=== PATIENT | male | born 1965 | race Caucasian/White ===

== ENCOUNTER 2018-09-18 05:53 | Day surgery (SDC) | payer OTHER ==
[2018-08-01 10:20] VITALS: BMI 39.8
[2018-09-18] MEDS ORDERED: MIDAZOLAM HCL 2 MG/2 ML SINGLE DOSE VIAL ONE (06:53)
[2018-09-18] MEDS ORDERED: PROPOFOL 20 ML ONE ×2 (06:56→07:45)
[2018-09-18] MEDS ORDERED: ROCURONIUM BROMIDE 50 MG/5 ML VIAL ONE (06:56)
[2018-09-18] MEDS ORDERED: SUCCINYLCHOLINE CHLORIDE 200 MG/10 ML VIAL ONE (06:56)
[2018-09-18] MEDS ORDERED: ONDANSETRON 4 MG/2 ML VIAL ONE (06:57)
[2018-09-18] MEDS ORDERED: LIDOCAINE HCL/PF 2% SDV 5ML VIAL ONE (06:57)
[2018-09-18] MEDS ORDERED: DEXAMETHASONE SOD PHOSPHATE 4 MG/1 ML VIAL ONE (06:57)
[2018-09-18] MEDS ORDERED: BUPIVACAINE HCL 0.25% 125 MG/50 ML VIAL ONE (07:23)
[2018-09-18] MEDS ORDERED: SEVOFLURANE 250 ML BTL ONE (07:24)
[2018-09-18] MEDS ORDERED: ONDANSETRON 4 MG/2 ML VIAL IVPUSH PRN (07:29)
[2018-09-18] MEDS ORDERED: oxyCODONE HCL 5 MG TABLET PO PRN ×2 (07:29)
--- NOTE | 2018-09-18 07:29 | OP ---
Operative Note - Note: Operative Date: 09/18/18 Pre-Operative Diagnosis: Right medial meniscus tear Operation: Right knee arthroscopy Post-Operative Diagnosis: Same as Pre-op Surgeon: Shadi Matthews Mannequin Mounter: Laura Mckeon Anesthesia: General Operative Report Dictated: Yes
[2018-09-18] MEDS ORDERED: LACTATED RINGERS SOLUTION 1,000 ML IV SCH (07:30)
[2018-09-18] MEDS ORDERED: ceFAZolin SODIUM 1 GM VIAL ONE (07:49)
[2018-09-18] MEDS ORDERED: BUPIVACAINE HCL/PF 0.25% (2.5MG/ML) 10 ML VIAL IJ ONE (07:56)
[2018-09-18] MEDS ORDERED: ACETAMINOPHEN 1000 MG/100 ML VIAL (NON FORMULARY) IVPB ONE (08:27)
[2018-09-18] MEDS ORDERED: ACETAMINOPHEN INJECTION 100 ML IVPB ONE (08:39)
--- NOTE | 2018-09-18 08:46 | OP ---
DATE OF OPERATION: 09/18/2018 PREOPERATIVE DIAGNOSIS: Right knee medial meniscal tear. POSTOPERATIVE DIAGNOSIS: Right knee medial meniscal tear. PROCEDURE PERFORMED: Right knee arthroscopy with partial medial meniscectomy. SURGEON: Shadi Caal MD ANESTHESIA: General. POSTOPERATIVE CONDITION: Stable. COMPLICATIONS: None. INDICATIONS: This is a pleasant gentleman suffering from medial knee pain. MRI demonstrated medial meniscal tear. Treatment options, including nonoperative versus operative management, were reviewed. Operative risks were reviewed in detail, including bleeding, infection, neurovascular injury, need for further surgery, postoperative pain and stiffness, production of osteoarthritis. We discussed medical risks, such as heart attack, stroke, DVT, PE and . I addressed the use of perioperative antibiotics and DVT prophylaxis. I addressed all the patient's questions and concerns. He voiced understanding and elected to proceed. DESCRIPTION OF PROCEDURE: The patient was brought to the operating room, where a general anesthetic was administered. The right lower extremity was prepped and draped in the usual sterile fashion. A preoperative dose of antibiotics was given, and the usual time-out procedure was performed. The portal sites were then marked out on the knee. The portal sites were injected subcutaneously with 0.25% Marcaine. An 11 blade was now used to establish a lateral portal. The arthroscope was passed into the knee. Examination of the patellofemoral joint demonstrated some mild to moderate partial thickness chondral wear. Passing the arthroscope into the notch demonstrated intact ACL and PCL. The arthroscope was passed into the medial compartment. Here a medial portal was established under spinal needle localization. The medial compartment was examined, demonstrating some moderate partial-thickness chondral loss along the lateral border of the medial femoral condyle. The tibial side demonstrated mild superficial fraying. There was a complex tear involving the posterior horn of the medial meniscus and extending just up to the body. Utilizing a combination of meniscal biters and shaver, this was debrided down to a stable base. The arthroscope was now passed into the lateral compartment. Here, some mild superficial cartilage wear was noted. The meniscus was unremarkable. The meniscus was probed and found to be stable. At this point, the excess fluid was withdrawn from the joint. The portals were sutured using 3-0 nylon. Sterile dressings were placed. The patient was extubated and transferred to the recovery room in stable condition. SHADI CAAL M.D. [id number]
[2018-09-18] MEDS ORDERED: oxyCODONE HCL 5 MG TABLET ONE (09:45)
[2018-09-18 09:55] VITALS: TEMP 97.5
[2018-09-18 10:54] VITALS: BP 142/81; PULSE 73
== END 2018-09-18 10:35 | disposition home or self-care (01) ==
LOC: FASU 05:53
PROVIDERS: ATTEND Orthopaedic Surgery Sports Medicine
PROC: 0SBC4ZZ Excision of Right Knee Joint, Percutaneous Endoscopic Approach (ICD-10-PCS; principal; 2018-09-18 07:56)
DX: S83.241A Other tear of medial meniscus, current injury, right knee, initial encounter (principal); X58.XXXA Exposure to other specified factors, initial encounter; Y93.9 Activity, unspecified; Y92.9 Unspecified place or not applicable
CPT/HCPCS: 94760; J0131

== ENCOUNTER 2019-04-22 09:17 | Day surgery (SDC) | payer OTHER ==
[2019-04-20 15:04] VITALS: BMI 40.8
[2019-04-22] MEDS ORDERED: LIDOCAINE HCL 2% (50ML VIAL) INF ONE ×2 (10:25→10:40)
[2019-04-22] MEDS ORDERED: PROPOFOL 20 ML ONE ×3 (10:33)
[2019-04-22] MEDS ORDERED: MIDAZOLAM HCL 2 MG/2 ML SINGLE DOSE VIAL ONE (10:33)
[2019-04-22] MEDS ORDERED: ACETAMINOPHEN 325 MG TABLET (FP) PO PRN (11:09)
[2019-04-22] MEDS ORDERED: oxyCODONE HCL 5 MG TABLET PO PRN (11:09)
[2019-04-22] MEDS ORDERED: ONDANSETRON 4 MG/2 ML VIAL IVPUSH PRN (11:09)
[2019-04-22 11:31] VITALS: PULSE 88; TEMP 97.6
[2019-04-22 11:57] VITALS: BP 136/87
--- NOTE | 2019-04-24 12:12 | OP ---
DATE OF OPERATION: 04/22/2019 PREOPERATIVE DIAGNOSIS: Left ring trigger finger. POSTOPERATIVE DIAGNOSIS: Left ring trigger finger. OPERATIVE PROCEDURE: Left ring trigger finger release. SURGEON: Samir Resendiz MD ANESTHESIA: Local with sedation. COMPLICATIONS: None. ESTIMATED BLOOD LOSS: Minimal. INDICATION FOR PROCEDURE: 53-year-old male with the above finding indicated for operative treatment. Risks, benefits, alternatives were discussed with the patient at length. Proper informed consent was obtained. PROCEDURE: After proper identification of patient and correct operative site, patient was brought to the operating room and placed supine on the table, prominences well padded. Sedation was given by the anesthesiologist. Local anesthesia was given with 2% lidocaine. Left upper extremity was prepped and draped in the usual sterile fashion. A well-padded tourniquet was placed with a sterile prep. Esmarch bandage used to exsanguinate left upper extremity. Tourniquet was inflated to 250 mmHg. A longitudinal incision was made over the left ring finger A1 ritesh. Incision was taken sharply through the skin with blunt and sharp dissection through the subcutaneous tissues. A1 ritesh was identified and divided longitudinally. Patient was asked to flex and extend his finger, and no further triggering was noted. Wound was repaired with 5-0 fast-absorbing plain gut suture. Sterile dressings were placed. Patient was brought to recovery room in stable condition. He tolerated procedure well. SAMIR RESENDIZ M.D. [id number]
== END 2019-04-22 12:05 | disposition home or self-care (01) ==
LOC: FASU 09:17
PROVIDERS: ATTEND Orthopaedic Surgery Hand Surgery
PROC: 0LN80ZZ Release Left Hand Tendon, Open Approach (ICD-10-PCS; principal; 2019-04-22 10:30)
DX: M65.342 Trigger finger, left ring finger (principal)

== ENCOUNTER 2019-05-13 21:28 | Emergency (ER) | payer OTHER ==
[2019-05-13 21:54] VITALS: BP 187/123; PULSE 96; TEMP 98; BMI 39.1
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
[2019-05-13] MEDS ORDERED: KETOROLAC TROMETHAMINE 60 MG/2 ML VIAL IM ONE (23:47)
[2019-05-13] MEDS ORDERED: KETOROLAC TROMETHAMINE 30 MG/1 ML VIAL ONE (23:59)
== END 2019-05-14 00:05 | disposition home or self-care (01) ==
LOC: JER 21:28
PROC: 2W3CX1Z Immobilization of Right Lower Arm using Splint (ICD-10-PCS; principal; 2019-05-13)
DX: M25.531 Pain in right wrist (principal); I10 Essential (primary) hypertension; J45.909 Unspecified asthma, uncomplicated; Z88.7 Allergy status to serum and vaccine; Z91.013 Allergy to seafood; F17.210 Nicotine dependence, cigarettes, uncomplicated
CPT/HCPCS: 73110-TC-RT-FY; 73130-TC-RT-FY; 99281-25

== ENCOUNTER 2019-06-19 10:18 | Emergency (ER) | payer OTHER ==
[2019-06-19 10:37] VITALS: BMI 39.6
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
--- NOTE | 2019-06-19 11:28 | PDOC ---
Documentation entered by Estefani Camacho SCRIBE, acting as scribe for Charley Llamas MD. Charley Llamas MD: This documentation has been prepared by the Doug estrada Nirvannie, SCRIBE, under my direction and personally reviewed by me in its entirety. I confirm that the documentation accurately reflects all work, treatment, procedures, and medical decision making performed by me. Attending Attestation - Resident Resident Name: Edith Ramos - ED Attending Attestation I have performed the following: I have examined & evaluated the patient, The case was reviewed & discussed with the resident, I agree w/resident's findings & plan, Exceptions are as noted - HPI HPI: 06/19/19 12:34 The patient is a 53 y/o male with a PMHx of HTN who presents with acute onset of L ear pain that woke him from sleep this morning, a/w pressure and left sided jaw pain. Pain is sharp, constant and associated with some lightheadedness and "seeing white" Reports h/o viral URI like symptoms and fever of 102 earlier this week. Patient also notes he slipped on the street and hit the R side of his head and face on the outside of a car door. ?LOC at that time, +headache, vomited 2-3 times post head trauma. States he either has an allergy to penicillin or the tetanus shot stating he got a shot previously +sore throat, but tolerating oral/fluid intake. no trismus no difficulty breathing, cp, nausea, diarrhea. no weakness or paresthesias. no known trauma to ear/head 06/19/19 12:52 06/19/19 14:38 - Physicial Exam PE: 06/19/19 11:27 Agree with the resident's HPI and PE as documented in the electronic medical record. NAD, well appearing, GCS 15. EOMI, PERRL, nl conjunctiva, anicteric; NCAT, PERRL, EOMI, clear conjunctiva, anicteric, moist mucus membranes, oropharynx clear. Airway patent, normal phonation. Uvula midline. no tonsillar hypertrophy. No sinus tenderness, TM clear, +erythema in left auditory canal and tender to otoscope evaluation. +left pinna tenderness to manipulation. neck supple. no midline sx. neg brudzkinski or kernig's sign. lungs clear, RRR, abdomen soft nontender. no rebound, guarding. Back nontender. BOX x4, no focal neuro deficits. No peripheral edema. normal color for ethnicity, WWP. speech clear. 06/19/19 11:28 06/19/19 12:52 - Medical Decision Making 06/19/19 11:28 Vital Signs Temp Pulse Resp BP Pulse Ox 98 F 94 H 22 H 165/116 H 94 L 06/19/19 10:34 06/19/19 10:34 06/19/19 10:34 06/19/19 10:34 06/19/19 10:34 ddx. viral syndrome, URI, OE, AOM, febrile illness, ICH, SAH, closed head injury , pharyngitis. NCAT, GCS 15 fall was 1 week ago with post traumatic head injury sx. will need head ct to eval for bleed. OE noted in left ear, rest of HEENT exam unremarkable. no trismus. phonation normal, airway intact, clear oropharynx, no hypertrophy, midline uvula. will treat with ciprodex otic drops in affected ear. no e/o TM inflammation or bulging or lesions or AOM. no e/o necrotizing features or malignant no h/o immunocompromised state doubt [employer] or RPA clinicaly no systemic features, no fever, nontoxic appearing no meningeal signs or symptoms. VS reviewed, no fever, rectal temp without fever HTN noted, likely 2/2 pain, will treat with analgesia and recheck no tachy sats border at 94% on RA, no respiratory distress speaking clear sentences. EKG normal sinus rhythm 88 bpm, no interval abnormalities, narrow QRS, ST and T wave segments and morphology normal. labs and lytes wnl, reassuring sore throat treatment with supportive care, hydration, salt water gargles, lemon tea. most likelly viral. no systemic features to suggest strep at this time. HTN noted on discharge, BP 150s/110s, otherwise asymptomatic, no cp or sob. told to get clinical recheck with primary doctor, as pt already on amlodipine, may need uptitration or start new agent, so told to discuss with PMD. no e/o end organ damage on labs, normal Cr. EKG as documented, no ischemic findings. Pt to be discharged in stable condition. Patient made aware of clinical impression, treatment recommendations and disposition plan, return precautions discussed (including but not limited to new or persistent/worsening symptoms, pain, fevers, or signs of infection, chest pain, respiratory distress, inability to tolerate oral intake, dehydration, syncope, or neurologic changes) . Follow up with PMD and/or specialist as recommended, follow up information provided, take medications as instructed for duration of time. continue with supportive care, avoid triggers and precipitants. All questions answered to patient's satisfaction and expressed understanding and comfort with this. At the time of discharge, the patient is alert, clinically improved, tolerating po and verbalizes understanding of instructions, satisfied with the care received and felt comfortable with the plan. Patient does not suffer from an acute life- threatening medical condition at this time and is safe for outpatient follow- up. 06/19/19 14:34 06/19/19 14:36 06/19/19 14:38 Discharge - Discharge Information Problems reviewed: Yes Clinical Impression/Diagnosis: Hypertension Otitis externa of left ear Qualifiers: Otitis externa type: unspecified type Chronicity: acute Qualified Code(s): H60.502 - Unspecified acute noninfective otitis externa, left ear Closed head injury Qualifiers: Encounter type: sequela Qualified Code(s): S09.90XS - Unspecified injury of head, sequela Condition: Stable Disposition: HOME - Admission No - Additional Discharge Information Prescriptions: Ciprofloxacin HCl/Dexameth [Ciprodex Otic Suspension] 3 drop BID 7 Days #1 bottle - Follow up/Referral Referrals: Ike Monroy [Primary Care Provider] - Javi Coughlin MD [Staff Physician] - - Patient Discharge Instructions Patient Printed Discharge Instructions: DI for High Blood Pressure, DI for Otitis Externa, DI for Closed Head Injury Additional Instructions: you have an outer ear infection take the ciprodex twice daily as instructed x 7 days - drops with the ear wick in place to treat infection avoid digital manipulation or aggressive cleaning. your head CT negative for bleed or stroke, this is likely concussion/closed head injury from your head injury 1) Please follow-up with your primary care doctor in the next 1-2 days. Please call tomorrow for for any urgent issues. 2) You were given a copy of the tests performed today. Please bring the results with you and review them with your primary care doctor. Your laboratory / imaging results were normal, 3) If you have any worsening of symptoms or any other concerns please return to the ED immediately. Return if worsening symptoms including fevers, headache, vomiting, visual or hearing disturbances, abdominal pain, chest pain, shortness of breath, syncope, dehydration, inability to take things by mouth/vomiting, altered mental status, or worsening concerning symptoms. 4) Please continue taking your home medications as directed. Stay well hydrated and rest adequately. Make an appointment. If you cannot follow-up with your primary care doctor please return to the ED - Post Discharge Activity Work/Back to School Note: Back to Work Heart Score/ECG Review #1 ECG reviewed & interpreted by me at: 10:45 General ECG Interpretation: Sinus Rhythm, Normal Rate, Normal Intervals, No acute ischemic changes 06/19/19 11:28 EKG normal sinus rhythm 88 bpm, no interval abnormalities, narrow QRS, ST and T wave segments and morphology normal.
[2019-06-19] MEDS ORDERED: ACETAMINOPHEN 500 MG TABLET (FP) PO ONE (12:17)
--- NOTE | 2019-06-19 12:19 | EKG ---
Test Reason : Blood Pressure : / mmHG Vent. Rate : 088 BPM Atrial Rate : 088 BPM P-R Int : 146 ms QRS Dur : 102 ms QT Int : 348 ms P-R-T Axes : 000 058 057 degrees QTc Int : 421 ms NORMAL SINUS RHYTHM NORMAL ECG WHEN COMPARED WITH ECG OF 05-JUL-2015 11:27, NO SIGNIFICANT CHANGE WAS FOUND Confirmed by SANDRA EMERSON MD ([id number]) on 06/19/2019 12:19:17 PM Referred By: Confirmed By:SANDRA EMERSON MD
[2019-06-19 12:24] LABS: BASO % 0.8 % (0-2.0); EOS % 0.8 % (0-4.5); HEMATOCRIT 48.2 % (35.4-49); HEMOGLOBIN 16.6 GM/dL (11.7-16.9); LYMPH % 15.5 % (8-40); MCH 31.3 pg (25.7-33.7); MCHC 34.5 g/dl (32.0-35.9); MEAN CELL VOLUME 90.7 fl (80-96); MONO % 11.4 % (3.8-10.2); NEUT % 71.5 % (42.8-82.8); PLATELET COUNT 245 K/MM3 (134-434); RBC 5.31 M/mm3 (4.00-5.60); RDW 13.5 % (11.9-15.9); WHITE BLOOD COUNT 10.7 K/mm3 (4.0-10.0)
[2019-06-19] MEDS ORDERED: ACETAMINOPHEN 325 MG TABLET (FP) ONE (12:38)
[2019-06-19 13:03] LABS: ALBUMIN 3.6 g/dl (3.4-5.0); BILIRUBIN,TOTAL 0.4 mg/dL (0.2-1); BLOOD UREA NITROGEN 10.3 mg/dL (7-18); CALCIUM 9.6 mg/dL (8.5-10.1); CREATININE 1.1 mg/dL (0.55-1.3); POTASSIUM 4.3 mmol/L (3.5-5.1); TOT PROT 6.8 g/dl (6.4-8.2)
[2019-06-19 14:34] VITALS: BP 157/114; PULSE 74; TEMP 96
== END 2019-06-19 14:40 | disposition home or self-care (01) ==
LOC: JER 10:18
DX: H60.502 Unspecified acute noninfective otitis externa, left ear (principal); I10 Essential (primary) hypertension; S09.8XXA Other specified injuries of head, initial encounter; W01.198A Fall on same level from slipping, tripping and stumbling with subsequent striking against other object, initial encounter; Y93.89 Activity, other specified; Y92.89 Other specified places as the place of occurrence of the external cause; Y99.8 Other external cause status; Z91.018 Allergy to other foods; Z88.7 Allergy status to serum and vaccine
CPT/HCPCS: 36415; 70450-TC; 80053; 85025; 93005; 93010; 99285-25

== ENCOUNTER 2020-10-11 16:00 | Emergency (ER) | payer OTHER ==
[2020-10-11 16:26] VITALS: BP 120/85; PULSE 85; TEMP 98; BMI 40.2
[2020-10-11] MEDS ORDERED: LIDOCAINE 5% TOPICAL PATCH TP ONE (16:55)
[2020-10-11] MEDS ORDERED: ACETAMINOPHEN 325 MG TABLET (FP) PO ONE (16:55)
[2020-10-11] MEDS ORDERED: IBUPROFEN 600 MG TABLET (FP) PO ONE ×3 (16:56→17:36)
[2020-10-11] MEDS ORDERED: ACETAMINOPHEN 325 MG TABLET (FP) ONE (17:33)
[2020-10-11] MEDS ORDERED: LIDOCAINE 5% TOPICAL PATCH ONE (17:34)
[2020-10-11] MEDS ORDERED: LIDOCAINE PATCH REMOVAL MC ONE (22:00)
== END 2020-10-11 19:05 | disposition home or self-care (01) ==
LOC: JER 16:00
DX: M54.6 Pain in thoracic spine (principal)
CPT/HCPCS: 71046-TC-FY; 93005; 93010; 99284-25